=== PATIENT | female | born 1990 | race Caucasian/White ===

== ENCOUNTER 2021-08-17 15:41 | Outpatient (CLI) | payer BC ==
[~2021-08-17 15:41] MED LIST: Iopamidol 370 76% 100 ML VIAL ONE
== END 2021-08-17 15:42 | disposition home or self-care (01) ==
LOC: MADCT 15:41
PROVIDERS: ATTEND Surgery
DX: R10.11 Right upper quadrant pain (principal); K35.80 Unspecified acute appendicitis; M43.16 Spondylolisthesis, lumbar region
CPT/HCPCS: 74177; Q9967